=== PATIENT | female | born 1930 | race Caucasian/White ===

== ENCOUNTER 2018-04-05 09:58 | Emergency (ER) | payer MEDICARE ==
[~2018-04-05] VITALS: Ht 160 cm; Wt 84.6 kg
[2018-04-05] MEDS ORDERED: METFORMIN500 MG PO (12:34)
[2018-04-05] MEDS ORDERED: METOPROL TAR25 MG PO (12:35)
[2018-04-05] MEDS ORDERED: LISINOPRIL20 MG PO (12:36)
[2018-04-05] MEDS ORDERED: PRAVASTATIN40 MG PO (12:37)
[2018-04-05] MEDS ORDERED: LEVOTHYROXIN50 MCG PO (12:38)
[2018-04-05] MEDS ORDERED: ALLOPURINOL100 MG PO (12:40)
[2018-04-05] MEDS ORDERED: NORVASC PO (12:40)
[2018-04-05] MEDS ORDERED: ULTRAM50 M1 PO (12:44)
[2018-04-05] MEDS ORDERED: MEDDOSEPAK PO (12:44)
[2018-04-05 12:57] VITALS: BP 135/70
== END 2018-04-05 13:17 | disposition home or self-care (01) ==
LOC: ED 09:58
DX: M25.562 Pain in left knee (principal); I10 Essential (primary) hypertension; E11.9 Type 2 diabetes mellitus without complications; E78.00 Pure hypercholesterolemia, unspecified; E03.9 Hypothyroidism, unspecified; M10.9 Gout, unspecified

== ENCOUNTER 2020-02-26 19:15 | Emergency (ER) | payer MEDICARE ==
[~2020-02-26] VITALS: Ht 160 cm; Wt 90.0 kg
[~2020-02-26 19:15] MED LIST: ALLOPURINOL100 MG PO; LEVOTHYROXIN50 MCG PO; LISINOPRIL20 MG PO; MEDDOSEPAK PO; METFORMIN500 MG PO; METOPROL TAR25 MG PO; NORVASC PO; PRAVASTATIN40 MG PO; ULTRAM50 M1 PO
[2020-02-26 20:06] LABS: HEMATOCRIT 39.4 % (37.0-47.0); HEMOGLOBIN 13.6 g/dl (12.0-16.0); IMMATURE GRANULOCYTES 5.1 % (0.0-5.0); MEAN CORPUSCULAR HGB 31.5 pG CALC (26.0-32.0); MEAN CORPUSCULAR HGB CONC 34.5 g/dL CAL (32.0-36.0); NEUT# 3.75 thou/uL (2.00-7.15); RED BLOOD COUNT 4.32 mill/uL (4.20-5.60); RED CELL DISTRI WIDTH 12.8 % (11.5-15.5)
[2020-02-26 20:29] LABS: MEAN CELL VOLUME 91.2 fL CALC (80.0-100.0)
[2020-02-26 20:39] LABS: D-DIMER 8.6 mg/L (0.19-0.60)
[2020-02-26 20:42] LABS: ACT PARTIAL THROMBO TIME 28.2 SECONDS (20.0-32.5)
[2020-02-26 21:02] LABS: ALBUMIN 3.3 g/dL (3.2-5.0); CREATININE 1.6 mg/dL (0.5-1.0); TOTAL PROTEIN 6.3 g/dL (6.3-8.2)
[2020-02-26 21:13] LABS: BILIRUBIN, TOTAL 1.1 mg/dL (0.0-1.4); C-REACTIVE PROTEIN 20.6 mg/dL (0-0.9); POTASSIUM 3.5 mmol/l (3.5-5.1)
[2020-02-26 23:26] LABS: URINE BILIRUBIN - DIPSTICK NEGATIVE (NEGATIVE); URINE BLOOD DIPSTICK MODERATE (NEGATIVE); URINE COLOR YELLOW; URINE GLUCOSE - DIPSTICK NEGATIVE (NEGATIVE); URINE KETONE TRACE mg/dL (NEGATIVE); URINE LEUK ESTERASE NEGATIVE (NEGATIVE); URINE NITRITE - DIPSTICK NEGATIVE (Negative); URINE PH 5.5 (4.5-8.0); URINE PROTEIN - DIPSTICK 30 mg/dL (NEG-TRACE); URINE SPECIFIC GRAVITY 1.015
[2020-02-26 23:40] LABS: URINE AMORPH SEDIMENT FEW hpf (NONE-FEW); URINE BACTERIA FEW hpf; URINE SQUAMOUS EPITHELIAL CELL FEW EPI/hpf (0-FEW); URINE WBC 0-2 WBC/hpf (0-5)
[2020-02-27 00:30] VITALS: BP 116/67
== END 2020-02-27 00:53 | disposition short-term general hospital (02) ==
LOC: ED 19:15
DX: U07.1 COVID-19 (principal); J12.82 Pneumonia due to coronavirus disease 2019; J96.00 Acute respiratory failure, unspecified whether with hypoxia or hypercapnia; R19.7 Diarrhea, unspecified; R50.9 Fever, unspecified; R53.1 Weakness; E11.9 Type 2 diabetes mellitus without complications; I10 Essential (primary) hypertension; E03.9 Hypothyroidism, unspecified; M10.9 Gout, unspecified; Z79.84 Long term (current) use of oral hypoglycemic drugs
CPT/HCPCS: J1650; Q9967